=== PATIENT | male | born 1965 | race Two or more races ===

== ENCOUNTER 2024-12-19 02:07 | Emergency (ER) | payer MEDICAID, OTHER ==
[~2024-12-19] VITALS: Ht 165.1 cm; Wt 90.4 kg
[2024-12-19] MEDS: MORPHINE SULFATE INJ 2 MG/ml SYRG IV ONE (02:30)
[2024-12-19 02:38] VITALS: PULSE 78; RESP 20; O2SAT 97
--- NOTE | 2024-12-19 02:39 | ED.PDOC ---
HPI Comments 59-year-old male who came to ER for chest pains. Patient has a history of hypertension, coronary artery disease, and TX. At around 9:00 a.m. yesterday, patient had cardiac stent (1) at [facility] and tolerated procedure well. Patient was at home, he was about asleep at around 1:00 a.m., substernal chest pressure, constant, radiating to his left shoulder, 8/10 intensity, associated shortness a breath. Patient states pain is similar to when he had an TX before. REVIEW OF SYSTEMS: General: No fever, no chills, or fatigue HEENT: No sore throat, no earache, no congestion, no neck pain. Cardiac: (+) chest pain. No palpitations. Lungs: (+) shortness of breath, no cough. GI: No nausea, no vomiting, no diarrhea, no constipation, no abdominal pain : No dysuria, frequency, or urgency. No hematuria. Musculoskeletal: No joint pain , no joint swelling, no extremity edema. Skin: No rash, no itching. Neuro: No headache, no dizziness, no weakness EXAM: General: Awake, alert and oriented. No acute distress. Skin: Skin in warm, dry and intact. Appropriate color for ethnicity. HEENT: The head is normocephalic and atraumatic. Conjunctivae are clear without exudates or hemorrhage. Sclera is non-icteric. EOM are intact. No signs of nystagmus. Eyelids are normal in appearance without swelling or lesions. Oral mucosa is pink and moist Neck: The neck is supple with normal range of motion. No JVD. Cardiac: Heart rate and rhythm are normal. No murmurs, gallops, or rubs are auscultated. Respiratory: No signs of respiratory distress. Lung sounds are clear in all lobes bilaterally without rales, rhonchi, or wheezes. Abdominal: Abdomen is soft, non-tender without distention. Bowel sounds are present and normoactive in all four quadrants. Extremities: Upper and lower extremities are atraumatic in appearance without deformity or edema. Neurological: The patient is awake, alert and oriented to person, place, and time with normal speech. Speech is clear. There is no facial asymmetry. Psychiatric: Appropriate mood and affect. Good judgement and insight Chief Complaint: Chest Pain Time Seen by MD: 02:39 Reviewed Notes: Nurses Notes Allergies: Coded Allergies: No Known Drug Allergy (Verified Allergy, Unknown, 12/19/24) Information Source: Patient Mode of Arrival: Ambulatory Past Medical History PAST MEDICAL HISTORY: CAD, CKF, HTN, TX Surgical History: PTCA Family History Family History: Reviewed,noncontributory to illness Social History Smoker: Non-Smoker Alcohol: Denies ETOH Use Drugs: Denies Drug Use Lives In: Home EKG EKG : Pulse Rate (adult): 65 Cardiac Rhythm: NSR Comments No STEMI Was a procedure done? Was a procedure done?: No CP Differential Dx Differential Diagnosis: Angina, Anxiety / Panic Attack Differential Diagnosis: Angina, Chest Wall Pain, Costochondritis, Esophageal reflux/spasm, Gastritis, Myocardial Infarction, Pneumonia, Pulmonary Embolus X-Ray, Labs, Meds, VS Vital Signs Date Time Temp Pulse Resp B/P (MAP) Pulse Ox O2 Delivery O2 Flow Rate FiO2 12/19/24 08:00 98.1 65 18 122/74 (90) 98 98.1 12/19/24 07:46 78 20 97 Room Air* 0 21 12/19/24 06:00 60 18 125/67 (86) 98 12/19/24 03:50 145/86 12/19/24 03:25 97.9 56 18 145/86 (105) 99 97.9 12/19/24 03:15 63 12/19/24 03:00 56 18 145/86 12/19/24 02:50 164/84 12/19/24 02:39 65 12/19/24 02:38 78 20 97 Room Air* 0 21 12/19/24 02:38 98.1 78 18 121/87 (98) 97 98.1 12/19/24 02:30 64 20 160/92 12/19/24 02:09 65 12/19/24 02:09 98.1 73 16 170/91 98 98.1 Lab Test 12/19/24 05:18 12/19/24 03:17 12/19/24 02:30 Range/Units Troponin I High Sensitivity 8694 *H 6991 *H 6541 *H </=54 ng/L White Blood Count 10.0 4.4-10.8 10^3/uL Red Blood Count 4.03 L 4.5-5.90 10^6/uL Hemoglobin 12.8 L 13.5-17.5 g/dL Hematocrit 37.2 L 41.0-53.0 % Mean Corpuscular Volume 92.3 80.0-100.0 fL Mean Corpuscular Hemoglobin 31.8 28.0-32.0 pg Mean Corpuscular Hemoglobin Concent 34.4 32.0-36.0 g/dL Red Cell Distribution Width 13.8 11.8-14.3 % Platelet Count 210 140-450 10^3/uL Mean Platelet Volume 9.7 6.9-10.8 fL Neutrophils (%) (Auto) 86.5 H 37.0-80.0 % Lymphocytes (%) (Auto) 5.8 L 10.0-50.0 % Monocytes (%) (Auto) 6.1 0.0-12.0 % Eosinophils (%) (Auto) 1.3 0.0-7.0 % Basophils (%) (Auto) 0.3 0.0-2.0 % Neutrophils # (Auto) 8.6 1.6-8.6 10 ^3/uL Lymphocytes # (Auto) 0.6 0.4-5.4 10 ^3/uL Monocytes # (Auto) 0.6 0-1.3 10 ^3/uL Eosinophils # (Auto) 0.1 0-0.8 10 ^3/uL Basophils # (Auto) 0 0-0.2 10 ^3/uL Nucleated Red Blood Cells 0.0 % Sodium Level 137 136-145 mmol/L Potassium Level 4.0 3.5-5.1 mmol/L Chloride Level 104 98-107 mmol/L Carbon Dioxide Level 22 20-31 mmol/L Anion Gap 11 5-15 Blood Urea Nitrogen 16 9-23 mg/dL Creatinine 2.05 H 0.700-1.30 mg/dL Glomerular Filtration Rate Calc 37 >90 mL/min BUN/Creatinine Ratio 7.8 L 10.0-20.0 Serum Glucose 165 H 74-106 mg/dL Calcium Level 8.6 L 8.7-10.4 mg/dL B-Type Natriuretic Peptide 115.53 0-100 pg/mL Current Medications Medications (Trade) Dose Ordered Sig/Nikos Route Start Time Stop Time Status Last Admin Nitroglycerin (Nitro-Bid) 1 pkg ONCE ONCE TD 12/19/24 02:30 12/19/24 02:32 DC 12/19/24 02:50 Morphine Sulfate 2 mg ONCE ONCE IV 12/19/24 02:30 12/19/24 02:33 DC 12/19/24 02:30 Time of 1ST Reevaluation: 02:36 Reevaluation 1ST: Unchanged Patient Education/Counseling: Need For Follow Up Family Education/Counseling: No Family Present SEPSIS Sepsis Screen Date sepsis recognized/suspect: Dec 19, 2024 Time Sepsis recognized/suspect: 215 Recent Procedure: No On Antibiotic Therapy: No Respiratory Rate >20: No Heart Rate >90: No Temp<36 C (96.8 F) or >38.3 C: No SBP <90 or MAP <65 mmHG: No New Acute Mental Status Change: No Is the patient on CPAP, BIPAP,: No Physician Orders Electrocardigram (12/19/24 03:14) Electrocardigram (12/19/24 05:14) Chest Xray 1 View (12/19/24 02:30) [employer] Goods Examiner (12/19/24 ) Imaging Transfer Request (12/19/24 05:09) Vital Signs Date Time Temp Pulse Resp B/P (MAP) Pulse Ox O2 Delivery O2 Flow Rate FiO2 12/19/24 08:00 98.1 65 18 122/74 (90) 98 98.1 12/19/24 07:46 78 20 97 Room Air* 0 21 12/19/24 06:00 60 18 125/67 (86) 98 12/19/24 03:50 145/86 12/19/24 03:25 97.9 56 18 145/86 (105) 99 97.9 12/19/24 03:15 63 12/19/24 03:00 56 18 145/86 12/19/24 02:50 164/84 12/19/24 02:39 65 12/19/24 02:38 78 20 97 Room Air* 0 21 12/19/24 02:38 98.1 78 18 121/87 (98) 97 98.1 12/19/24 02:30 64 20 160/92 12/19/24 02:09 65 12/19/24 02:09 98.1 73 16 170/91 98 98.1 Laboratory Tests Test 12/19/24 02:30 White Blood Count 10.0 10^3/uL (4.4-10.8) Departure 1 Departure Time of Disposition: 03:54 Impression: Primary Impression: Chest pain Additional Impressions: Elevated troponin Status post angioplasty Disposition: 02 SHORT TERM [facility]OSPITAL Condition: Stable Comments 59-year-old male with angioplasty performed yesterday morning at [facility], [place] presents with chest pain. Troponin elevated. No ST elevations on EKG. Discussed with Dr. Burch at [facility], [place] who accepts patient for transfer. Extensive evaluation was performed in attempt to identify or rule out: (See differential diagnosis section) The following tests were ordered, and results were reviewed by me and discussed with patient: (See diagnostic results section) The following test were independently interpreted by me: EKG Additional information was gathered from interviewing the following independent historians: N/A Discussion of management or test interpretation with external physician/other qualified health care taker: Dr. Burch Critical Care Note Critical Care Time?: No Stability Stability form required: No Heart Score Heart Score: Heart Score Response (Comments) Value History Moderate Suspicious 1 EKG Normal 0 Age 45-64 1 Risk Factors >3 or Hx ASHD 2 Troponin Normal limit 0 Total 4 I personally scribed for HEATHER OLEARY MD ([email or web address]) on 12/19/24 at 02:39. Electronically submitted by Alen Beck ([email or web address]). HEATHER OLEARY MD Dec 19, 2024 02:39
[2024-12-19] MEDS: NITROGLYCERIN 2% OINT 1GM PKG TD ONE (02:50)
--- NOTE | 2024-12-19 02:59 | DVH ---
CHEST RADIOGRAPH Indication: cp Technique: Single frontal view of the chest was obtained COMPARISON: None FINDINGS: Lines and Tubes: None Lungs: Clear Pleura: No effusion. No pneumothorax. Cardiomediastinal contours: Unremarkable Bones: Unremarkable IMPRESSION: 1. No acute disease.
[2024-12-19 03:08] LABS: Hematocrit 37.2 % (41.0-53.0); Hemoglobin 12.8 g/dL (13.5-17.5); Mean Corpuscular Hemoglobin 31.8 pg (28.0-32.0); Mean Corpuscular Volume 92.3 fL (80.0-100.0); Nucleated Red Blood Cells % 0.0 %
[2024-12-19 03:17] LABS: Chloride 104 mmol/L (98-107); Potassium 4.0 mmol/L (3.5-5.1); Sodium 137 mmol/L (136-145)
[2024-12-19 03:18] LABS: Anion Gap 11 (5-15); Carbon Dioxide 22 mmol/L (20-31)
[2024-12-19 03:20] LABS: Calcium 8.6 mg/dL (8.7-10.4)
[2024-12-19 03:23] LABS: BUN/Creatinine Ratio 7.8 (10.0-20.0); Blood Urea Nitrogen 16 mg/dL (9-23)
[2024-12-19 03:24] LABS: Glucose 165 mg/dL (74-106)
--- NOTE | 2024-12-19 03:31 | ECG ---
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
[2024-12-19 07:46] VITALS: PULSE 78; RESP 20; O2SAT 97
[2024-12-19 08:00] VITALS: BP 122/74; PULSE 65; RESP 18; TEMP 98.1; O2SAT 98
--- NOTE | 2024-12-22 06:16 | ECG ---
[facility] Test Date: 2024-12-19 Test Time: 03:15:31 Pat Name: THA MANN Department: [facility] ED Patient ID: [facility]-[id number] Room: Gender: M Printmaker: PATTI : 1965 Requested By: EMERGENCY EMERGENCY Order Number: [id number] Reading MD: Measurements Intervals [place] Rate: 63 P: 19 W[place]: 145 QRS: 30 QRSD: 84 T: 52 QT: 421 QTc: 431 Interpretive Statements Sinus rhythm Baseline wander in lead(s) I,II,aVR,V1,V2,V3,V5 Please click the below link to view image of tracing.
== END 2024-12-19 08:05 | disposition short-term general hospital (02) ==
LOC: ER 02:07
DX: R07.89 Other chest pain (principal); R79.89 Other specified abnormal findings of blood chemistry; I10 Essential (primary) hypertension; Z95.5 Presence of coronary angioplasty implant and graft; Z79.899 Other long term (current) drug therapy
CPT/HCPCS: 36415; 71045; 80048; 83880; 84484; 85025; 93005; 96374; 99285; J2270